=== PATIENT | female | born 1965 | race Caucasian/White ===

== ENCOUNTER 2018-02-03 05:07 | Inpatient (IN) | payer OTHER ==
[~2018-02-03] VITALS: Ht 154.9 cm; Wt 86.2 kg
[~2018-02-03 05:07] MED LIST: BACLOFEN10 M1 PO; FOLBIC RF TABL1 EACH PO; LEVOTHYROXINE175 MCG PO; MAGNESIUM500 M2 PO; OXCARBAZEPINE300 M1 PO; PERCOCET 5-3251 EACH PO; PROBIOTIC250 MG PO; VITAMIN D31000 UNI2 PO
--- NOTE | 2018-02-03 05:42 | ED GI/GU/ABDOMINAL COMPLAINT ---
History of Present Illness General Chief Complaint: General Adult Stated Complaint: VOMITING,WEAK,DIZZY POST/OP GALLBLADDER SURGERY Source: patient, family, old records Exam Limitations: no limitations Vital Signs & Intake/Output Vital Signs & Intake/Output Vital Signs Date Time Temp Pulse Resp B/P B/P Pulse O2 O2 Flow FiO2 Mean Ox Delivery Rate 02/03 1132 98.2 65 18 130/78 95 Room Air 02/03 0521 94 Room Air 02/03 0519 98.4 97 18 142/88 94 Room Air Allergies Coded Allergies: No Known Allergies (02/03/18) Reconcile Medications B12/Levomefolate Calcium/B-6 (Folbic Rf Tablet) 2 MG-1.13 MG-25 MG TABLET 2, 500 MG PO DAILY SUPPLEMENT (Reported) Baclofen 10 MG TABLET 1 TAB PO TID PRN MS (Reported) Cholecalciferol (Vitamin D3) 1,000 UNIT TABLET 5,000 UNITS PO DAILY SUPPLEMENT (Reported) Levothyroxine Sodium 175 MCG TABLET HYPOTHYROID (Reported) TAKE 1 PILL TUESDAY-TUESDAY 1/2 PILL TUESDAY- TUESDAY Magnesium Oxide (Magnesium) 500 MG CAPSULE 1 CAP PO DAILY SUPPLEMENT ( Reported) Morphine Sulfate 15 MG TABLET 1 TAB PO Q6P PRN severe pain Ondansetron (Zofran Odt) 4 MG TAB.RAPDIS 1 TAB SL Q6 PRN nausea vomiting Oxcarbazepine 300 MG TABLET 2 TAB PO TID MS (Reported) Oxycodone HCl/Acetaminophen (Percocet 5-325 MG Tablet) 5 MG-325 MG TABLET 1-2 TAB PO Q4-6 PRN PRN pain control tylenol alternatively. do not combine with percocet.. Saccharomyces Boulardii (Probiotic) 250 MG CAPSULE 1 TAB PO DAILY SUPPLEMENT (Reported) Triage Note: TRIAGE: PATIENT TO ER FROM HOME S/P CHOLECYSTECTOMY ON TUESDAY, REPORTS VOMITTING "ALOT" X 1 DAY AND SEVERE PAIN D/T "CAN'T KEEP THE PAIN MED THEY GAVE ME DOWN. ALSO REPORTING +CHILLS/ WEAKNESS, UNKNOWN IF ANY FEVERS, DENIES DRAINAGE FROM SURGICAL SITE. Triage Nurses Notes Reviewed? yes LMP (ages 10-50): post menopausal ? n Is pt currently ? No Onset: Evening Duration: hour(s):, constant, continues in ED Timing: recent history Quality/Severity: aching, moderate, severe, vomiting Location: generalized abdomen Radiation: no radiation Activities at Onset: eating Prior Abdominal Problems: s/p lap ccy Past Sexual History: Unobtainable at this time Modifying Factors: Worsens With: eating, palpation. Associated Symptoms: abdominal pain, loss of appetite, nausea/vomiting HPI: 2 days prior to admission patient had laparoscopic cholecystectomy. 10 hours prior to admission after eating dinner patient complains of nausea vomiting lower abdominal pain described as achy constant nonradiating moderate to severe. She denies fever chills chest pain cough shortness of breath headache dysuria rash bleeding. (Ras Mei MD) Past History Travel History Traveled to [place] past 21 day No Medical History Any Pertinent Medical History? 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 No (Ras Mei MD) Review of Systems Review of Systems Constitutional: Reports: no symptoms. EENTM: Reports: no symptoms. Respiratory: Reports: no symptoms. Cardiovascular: Reports: no symptoms. GI: Reports: see HPI, abdominal pain, nausea, vomiting. Genitourinary: Reports: no symptoms. Musculoskeletal: Reports: no symptoms. Skin: Reports: no symptoms. Neurological/Psychological: Reports: no symptoms. Hematologic/Endocrine: Reports: no symptoms. Immunologic/Allergic: Reports: no symptoms. All Other Systems: Reviewed and Negative (Ras Mei MD) Physical Exam Physical Exam General Appearance: well developed/nourished, alert, awake, anxious, moderate distress, obese Head: atraumatic, normal appearance Eyes: Bilateral: normal appearance, PERRL, EOMI, normal inspection. Ears, Nose, Throat, Mouth: hearing grossly normal, moist mucous membrane Neck: normal inspection, supple, full range of motion, normal alignment Respiratory: normal breath sounds, chest non-tender, no respiratory distress, quiet respiration, lungs clear Cardiovascular: regular rate/rhythm, normal peripheral pulses, norml femoral pulses equa Peripheral Pulses: 4+ carotid (R) Gastrointestinal: normal bowel sounds, soft, non-tender, no organomegaly Back: normal inspection, normal range of motion, no vertebral tenderness Extremities: normal range of motion, no ligament instability Neurologic/Psych: no motor/sensory deficits, awake, alert, oriented x 3, normal gait, normal mood/affect, 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 No Sepsis Present: No Sepsis Focused Exam Completed? No (Sigifredo LYNNE,Ras) Progress Differential Diagnosis: diverticulitis, gastritis, pancreatitis, SBO Plan of Care: Orders Procedure Date/time Status Nothing by Mouth 02/03 D Active Misc Message 02/03 113 Active ED Holding Orders 02/03 113 Active Admit to inpatient 02/03 113 Active Vital Signs 02/03 113 Active Code Status 02/03 113 Active PROTHROMBIN TIME 02/03 0531 Complete LACTIC ACID 02/03 0531 Complete LIPASE 02/03 05 Complete COMPREHENSIVE METABOLIC PANEL 02/03 05 Complete CBC WITHOUT DIFFERENTIAL 02/04 528 Complete Current Medications Sig/Josette Start time Last Medication Dose Stop Time Status Admin Morphine Sulfate 4 MG ONCE ONE 02/03 1145 AC (MORPHINE SULFATE) 02/03 1146 Ondansetron HCl 4 MG ONCE ONE 02/03 1145 AC (Zofran) 02/03 1146 Laboratory Tests 02/03/18 0831: Lactic Acid Cancelled 02/03/18 0541: Lactic Acid 1.1 02/03/18 0541: Anion Gap 12, Estimated GFR > 60, BUN/Creatinine Ratio 10.0, Glucose 106 H, Calcium 9.6, Total Bilirubin 3.2 H, AST 413 H, ALT 646 H, Alkaline Phosphatase 299 H, Total Protein 6.9, Albumin 4.1, Globulin 2.8, Albumin/ Globulin Ratio 1.5, Lipase > 03635 H, PT 12.3, INR 1.13, CBC w Diff MAN DIFF ORDERED, RBC 4.54, MCV 86.0, MCH 28.0, MCHC 32.6 L, RDW 15.0 H, MPV 8.6, Gran % 81.2 H, Lymphocytes % 10.9 L, Monocytes % 6.6, Eosinophils % 1.0, Basophils % 0.3, Absolute Granulocytes 4.4, Segmented Neutrophils 82 H, Absolute Lymphocytes 0.6 L, Lymphocytes 16 L, Monocytes 2, Absolute Monocytes 0.4, Absolute Eosinophils 0.1, Absolute Basophils 0, Platelet Estimate ADEQUATE, Hypochromic-Microcytic 1+, Poikilocytosis 1+, Ovalocytes 1+, Fld Total RBCs Counted 100 Initial ED EKG: none Hand-Off Endorsed To: Aiden Yuan MD Endorsed Time: 708 Pending: labs (chemistry) (Ras Mei MD) Comments: 02/03/2018 7:34:45 AM patient 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 02/03/2018 9:07:41 AM patient's CAT scan discussed with the radiologist who noted that there was a nonabsorbable sponge or perhaps Surgicel in the patient's abdomen. With review of the operative report Surgicel was used along with electrocautery to control bleeding. Otherwise there are expected postoperative changes. 02/03/2018 9:56:42 AM patient's case discussed with Dr. Goldsmith, covering for Dr. Hsieh. I have reviewed the CAT scan reports and elevations in transaminases. He recommends GI consultation for ERCP due to a likely retained gallstone. 02/03/2018 10:31:15 AM I have updated when the on test results. She states she is feeling only occasional waves of nausea. Awaiting call back from GI. 02/03/2018 11:05:17 AM patient's case discussed with Dr. Kilgore who will investigate the possibility of ERCP and call back with confirmation. (Lissy LYNNE,Aiden Jean Baptiste) Departure Departure Disposition: HOME OR SELF CARE Condition: Stable Clinical Impression Primary Impression: Postoperative abdominal pain Secondary Impressions: Adverse drug reaction, Nausea and vomiting in adult patient Referrals: Bunny Estes MD (PCP/Family) Saleem Grande DO Departure Forms: Customer Survey General Discharge Information Prescriptions: Current Visit Scripts Ondansetron (Zofran Odt) 1 TAB SL Q6 PRN nausea vomiting #10 TAB Morphine Sulfate 1 TAB PO Q6P PRN severe pain #15 TAB (Ras Mei MD) Admission Note Spoke With: Jamshid Cherry MD Documentation of Exam: Documentation of any treatments & extenuating circumstances including Concerns Regarding Discharge (functional status, medication knowledge or non-compliance, living conditions, etc.) that warrant an admission rather than observation: Patient presents with vomiting and abdominal pain and a severely elevated lipase along with elevations in transaminases. Patient is postop day #2 status post lap cholecystectomy. She very likely has a common bile duct stone resulting in pancreatitis and transaminitis. She is a high risk of cholangitis overwhelming infection, pancreatitis, third spacing, hypotension and . I feel the patient is a poor candidate for outpatient management and cannot safely be treated outside the hospital. She now requires hospitalization for close clinical monitoring of vital signs, particularly for onset of fever. ERCP should be performed to rule out a common bile duct stone or other biliary obstruction. Surgical consultation should be obtained given the patient's postop status. Patient's lipase and transaminases should be monitored for improvement after ERCP. Diet should be advanced as tolerated. I feel this patient will require a multiple day hospitalization. (Lissy LYNNE,Aiden Jean Baptiste) Critical Care Note Critical Care Note Critical Care Time: 30-74 min (Lissy LYNNE,Aiden Jean Baptiste)
[2018-02-03 05:53] LABS: ABSOLUTE BASOPHIL COUNT 0 /CUMM (0.0-0.2); ABSOLUTE EOSINOPHIL COUNT 0.1 /CUMM (0.0-0.7); ABSOLUTE GRANULOCYTE CT 4.4 /CUMM (1.4-6.5); ABSOLUTE LYMPH COUNT 0.6 /CUMM (1.2-3.4); ABSOLUTE MONOCYTE COUNT 0.4 /CUMM (0.10-0.60); BASOPHIL % 0.3 % (0.0-2.0); GRANULOCYTE % 81.2 % (42.2-75.2); MEAN CORPUSCULAR HGB CONC 32.6 G/DL (33.0-37.0); MEAN PLATELET VOLUME 8.6 FL (7.4-10.4); PLATELET COUNT 207 /CUMM (130-400); RED BLOOD CELL CT 4.54 /CUMM (4.20-5.40)
[2018-02-03 05:57] LABS: PT 12.3 SEC (9.4-12.5)
[2018-02-03 05:59] LABS: WHITE BLOOD CELL COUNT 5.4 /CUMM (4.8-10.8)
[2018-02-03] MEDS ORDERED: MORPHINE SULFAT15 M4 PO ×2 (07:01→07:03)
[2018-02-03] MEDS ORDERED: ZOFRAN ODT4 M1 SL (07:01)
--- NOTE | 2018-02-03 09:11 | CT SCAN REPORT ---
EXAMINATION: CT ABDOMEN AND PELVIS WITH CONTRAST CLINICAL INFORMATION: Pancreatitis. Phlegmon. Biliary obstruction. Elevated lipase. Liver function tests. Vomiting. COMPARISON: MRI 02/01/2018, ultrasound 01/31/2018, CT abdomen pelvis 01/31/2018. TECHNIQUE: Multidetector volumetric imaging was performed of the abdomen and pelvis following IV administration of 95 mL of Optiray 320 intravenous contrast. Sagittal and coronal reformatted images were obtained on the technologist's workstation. DLP: 615 mGy-cm FINDINGS: LUNG BASES: Bibasilar atelectasis, increased, right greater than left. LIVER, GALLBLADDER, AND BILIARY TREE: There is a hyperenhancing lesion in segment 7 of the liver, which is T2 bright on the MRI, consistent with a hemangioma. This is simple cyst along the anterior margin of the left lobe of the liver. New cholecystectomy clips are seen in the gallbladder fossa. There is an ovoid mixed density structure in the gallbladder fossa that measures approximately 3.6 x 2.3 cm, this has soft tissue density centrally, with a rim of fat and gas, and a thin peripheral capsule. A hemostatic sponge or sponge or Surgicel could have this appearance. There is a small amount of fluid along the right paracolic gutter, presumably postoperative as well. No focal fluid collection seen. No biliary ductal dilatation. PANCREAS: There is subtle fat stranding adjacent the head of the pancreas, although this appears to be centered in the gallbladder fossa. No peripancreatic fluid or fat stranding elsewhere. SPLEEN: Unremarkable. ADRENAL GLANDS: Unremarkable. KIDNEYS AND URETERS: The kidneys are normal in size, shape, and attenuation. No hydronephrosis, hydroureter, or calculi seen. No perinephric stranding. BLADDER: Unremarkable. GASTROINTESTINAL TRACT: There may be a small hiatal hernia. The stomach is collapsed. The small bowel is nondilated. There is colonic diverticulosis but there is no evidence of colitis or diverticulitis. The appendix is not seen. ABDOMINAL WALL: No significant hernia is appreciated. LYMPH NODES: No pathologically enlarged lymphadenopathy. VASCULAR: Unremarkable. PELVIC VISCERA: Small amount of pelvic free fluid is present. Normal CT appearance of the uterus and ovaries. OSSEOUS STRUCTURES: Unremarkable. IMPRESSION: There are postoperative changes consistent with recent cholecystectomy. There is an ovoid mixed density structure in the gallbladder fossa that has the appearance of a absorbable hemostatic sponge (Surgicel). This was confirmed in the Operative Note in discussion with Dr Yuan. No discrete fluid collection to suggest a bile leak or abscess at this time. Hepatobiliary scintigraphy could be considered if there is high clinical concern for a bile leak or biloma. No biliary ductal dilatation seen. There is a small amount of fat stranding adjacent the head of the pancreas. This appears to be centered around the jt hepatis and gallbladder fossa, suggesting it is postoperative rather than from acute pancreatitis. Discussed with Dr. Yuan.
--- NOTE | 2018-02-03 11:13 | Cons- Gastroenterology ---
General Information and HPI Consulting Request Date of Consult: 02/03/18 Requested By: YAMIL LYNNE,VALENTINA Reason for Consult: I was just texted by my office minutes ago of a request for a GI consult to assess probable gallstone pancreatitis, POD #2 lap CCKY Source of Information: patient, family (pt's , Alonso), old records Exam Limitations: no limitations History of Present Illness: 52 y/o female, PMHx significant for MS (dxd 2012 with neuropathy), BEATRICE, elev chol (nl TG), & hypoT4, recently admitted to [facility] 01/31/[address] 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 She stopped the Lyrica, but her sx persisted, along with some diarrhea then. The diarrhea susided, but was f/b n/v & increased bandlike, sharp upper abdominal pain, without radiation to the back. She had no prior abdominal surgery at that time, just a remote left breast lumpectomy many years prior. She previously had GERD, which improved after therapy for BEATRICE. She had been on Omeprazole previously. She denied any history of preceding chronc liver abnormalities or hx hepatitis. 03/24/16: Baseline screening colonoscopy to per Dr. Codi Roberts- normal. On admission on 01/31/18, she had elevated LFTs (TBil 1.7, alk phos 193, AST 711 , ALT 425), with normal amylase & lipase, GFR > 60, WBC 4,4, H/H 13.2/38.7, nl MCV, PLT 215 She was seen in inpatient GI consultation 01/31/18, by Dr. Codi Roberts. The patient was felt to have biliary colic, with gallstones & elevated LFTs ( hyperbilirubinemia/transaminitis), without any evident cholangitis or pancreatitis at that time. Although there were no dilated ducts on initial imaging studies, rule out choledocholithiasis. 01/31/18: EKG- NSR @ 81, nl axis, IRBBB, NSST. 01/31/18: US-COMPLETE ABDOMEN- Multiple gallstones. Though there is no significant gallbladder wall thickening or pericholecystic fluid, cholecystitis cannot be excluded in the proper clinical setting. If there is persistent clinical suspicion for acute cholecystitis, correlation with a nuclear medicine hepatobiliary scan may be helpful to assess for cystic duct obstruction. Left hepatic cyst 1.0 x 0.9 x 1.1 cm. Normal CBD 5 mm. 01/31/18: CT ABD & PELVIS W IV CONTRAST- Abnormal appearance of the gallbladder with wall thickening and pericholecystic fluid. No radiopaque gallstones are seen, but the appearance does raise suspicion for acute cholecystitis. ? Liver cysts. 02/01/18: MRI ABDOMEN WITHOUT CONTRAST (MRCP)- Cholelithiasis with multiple small gallstones which are present within the gallbladder neck. There is mild gallbladder wall thickening. Acute cholecystitis is not excluded. There is no evidence for choledocholithiasis. Normal IHD/EHD, with CBD 5 mm. Normal PD. Norml pancreas. There is a small cystic lesion in the liver and additional T2 hyperintense lesion which is incompletely characterized. Additional incidental findings as noted above. 02/01/18: Lap CCKY, per Dr. Grande, w/o IOC, as ducts were cleared on preop MRCP, with intraoperative findings of cholelithiasis & cholecystitis. (*Surgical pathology- pending). The patient was discharged to home 02/01/18, tolerating a diet, as her LFTs were starting to decline. The patient returned to the [facility] 02/03/18, arriving 5:07 a.m., complaining of nausea & vomiting (partially digested food & bile, w/o hematemesis), sharp mid-abdominal pain, weakness, & dizziness, POD # 2, post lap CCKY. There was no positional component. She denied any drainage from the surgical site. She denied any fevers, but may have had some chills. She ate a small piece of chicken, fruit & some bread at 5 p.m. on 02/02/18, followed 1 hour later by the above GI sx. She last drank some juliann angelique at 3 AM on 02/03/18, & had been NPO since. She denied any jaundice, light stools, or pruritus, but noted her urine was somewhat dark. She denied any EtOH or illicit drugs. She is an ex-20 pk yr cigarette smoker, D/C 2016. She had been constipated for the past week, but was on narcotic analgesics postoperatively. She denied any constipation or recurrent diarrhea. There was no rectal bleeding or melena. She denied any CP, SOB, sx UTI, or URI. The patient was not on any NSAIDs, sulfa medications, thiazides, or BCP. She denied any family history of GBD, inherited liver disease, pancreatitis, IBD, PUD, additional GI disease, or GI CA. Upon arrival to the ER, BP 142/88, P 97, R 18, T 98.4, O2 sat RA 94%. She was given IV NS, MS, Zofran, & Unasyn 3g IVPB. She was found to have elevated LFTs & newly elevated lipase. Surgery (Dr. Goldsmith, covering for Dr. Grande), was contacted by the ER, who deferred to GI. 02/03/18: WBC 5.4 (82S/16L/2M), H/H 12.7/39.0, MCV 86, RDW 15, PLT 207, PT 12.3, INR 1.13, glucose 106, BUN/Cr 7/0.7, GFR > 60, Na 143, K 3.8, HCO3 28, AG 12, lactate 1.1, *lipase > 10K, Ca 9.6, albumin 4.1, globulin 2.8, TBil 3.2 (without fracs), alk phos 299, AST 413, ALT 646, *TG- 74. 02/03/18: CT ABD & PELVIS W IV CONTRAST- There are postoperative changes consistent with recent cholecystectomy. There is an ovoid mixed density structure in the gallbladder fossa that has the appearance of a absorbable hemostatic sponge (Surgicel). This was confirmed in the Operative Note in discussion with Dr Yuan. No discrete fluid collection to suggest a bile leak or abscess at this time. Hepatobiliary scintigraphy could be considered if there is high clinical concern for a bile leak or biloma. No biliary ductal dilatation seen. There is a small amount of fat stranding adjacent the head of the pancreas. This appears to be centered around the jt hepatis and gallbladder fossa, suggesting it is postoperative rather than from acute pancreatitis. Discussed with Dr. Yuan. DICTATED BY: Gagan Stubbs MD DATE/TIME DICTATED:02/03/18839 Allergies/Medications Allergies: Coded Allergies: No Known Allergies (02/03/18) Home Med List: B12/Levomefolate Calcium/B-6 (Folbic Rf Tablet) 2 MG-1.13 MG-25 MG TABLET 2, 500 MG PO DAILY SUPPLEMENT (Reported) Baclofen 10 MG TABLET 1 TAB PO TID PRN MS (Reported) Cholecalciferol (Vitamin D3) 1,000 UNIT TABLET 5,000 UNITS PO DAILY SUPPLEMENT (Reported) Lactobacillus Acidophilus (Probiotic) 10 BILLION CELL CAPSULE 1 CAP PO TID GI (Reported) Levothyroxine Sodium 88 MCG TABLET 1 TAB PO SAT/SUN HYPOTHYROIDISM (Reported) Levothyroxine Sodium 175 MCG TABLET HYPOTHYROID (Reported) TAKE 1 PILL TUESDAY-TUESDAY 1/2 PILL TUESDAY- TUESDAY Magnesium Oxide (Magnesium) 500 MG CAPSULE 1 CAP PO DAILY SUPPLEMENT ( Reported) Oxcarbazepine (Trileptal) 300 MG TABLET 2 TAB PO TID MS (Reported) Saccharomyces Boulardii (Probiotic) 250 MG CAPSULE 1 TAB PO DAILY SUPPLEMENT (Reported) Current Medications: Current Medications Sig/Josette Start time Last Medication Dose Route Stop Time Status Admin Ampicillin Sodium/ 0 .STK-MED ONE 02/03 0747 DC Sulbactam Sodium .ROUTE Ampicillin Sodium/ 3,000 MG ONCE ONE 02/03 0745 DC 02/03 Sulbactam Sodium IV 02/03 0814 0752 Sodium Chloride 100 ML Baclofen 10 MG TIDPRN PRN 02/03 1230 AC PO Heparin Sodium 5,000 UNIT Q8 02/03 1400 AC (Porcine) SC Levothyroxine Sodium 0.088 MG SuSa@0700 02/04 0700 AC PO Levothyroxine Sodium 0.175 MG MoTuWeThFr@0700 02/03 1230 AC PO Morphine Sulfate 2 MG Q4P PRN 02/03 1230 AC IV Morphine Sulfate 4 MG ONCE ONE 02/03 1145 DC 02/03 IV 02/03 1146 1146 Morphine Sulfate 0 .STK-MED ONE 02/03 1141 DC .ROUTE Morphine Sulfate 0 .STK-MED ONE 02/03 0554 DC .ROUTE Morphine Sulfate 4 MG ONCE ONE 02/03 0530 DC 02/03 IV 02/03 0531 0551 Ondansetron HCl 4 MG Q6P PRN 02/03 1230 AC IV Ondansetron HCl 4 MG ONCE ONE 02/03 1145 DC 02/03 IV 02/03 1146 1146 Ondansetron HCl 0 .STK-MED ONE 02/03 1141 DC .ROUTE Ondansetron HCl 0 .STK-MED ONE 02/03 0555 DC .ROUTE Ondansetron HCl 4 MG ONCE ONE 02/03 0530 DC 02/03 IV 02/03 0531 0551 Phytonadione 5 MG ONCE ONE 02/03 1300 UNVr PO 02/03 1301 Sodium Chloride 1,000 ML Q10H 02/03 1215 AC 02/03 IV 1220 Sodium Chloride 1,000 ML BOLUS ONE 02/03 0530 DC 02/03 IV 02/03 0629 0551 Trimethobenzamide HCl 200 MG TIDPRN PRN 02/03 1215 AC IM Past History Travel History Traveled to [place] past 21 day No Medical History Blood Transfusion Hx: No Neurological: multiple sclerosis EENT: NONE Cardiovascular: NONE Respiratory: obstructive sleep apnea Gastrointestinal: NONE Hepatic: NONE (02/01/18: Lap CCKY), cholecystitis, cholelithiasis Renal: NONE Musculoskeletal: NONE Psychiatric: NONE Endocrine: hypothyroidism Blood Disorders: NONE Cancer(s): NONE INSTRUMENT FITTER/Reproductive: NONE Surgical History Surgical History: breast biopsy (left lumpectomy- benign), cholecystectomy (09/10: Lap CCKY) Family History Relations & Conditions If Any: MOTHER ([employer]). Age 81. FATHER, , Age 65; Cause: AIDS. AIDS Psychosocial History Where Do You Live? Home Who Do You Live With? spouse, mother & F-I-L. Services at Home: None Primary Language: Bengali Smoking Status: Former Smoker ETOH Use: denies use Illicit Drug Use: denies illicit drug use Living Will? no Power of [employer]/HCP? no Other Social History: . No children. Ex-20 pk yr cigarette smoker, D/c 2016. No EtOH or illicit drugs. Lives with , mother & MAULIK. Unemployed. Functional Ability ADLs Independent: dressing, eating, toileting, bathing. Ambulation: independent IADLs Independent: shopping, housework, finances, food prep, telephone, medication admin. Needs Assist: transportation. Employment History Employment: Unemployed Review of Systems Review of Systems: Full 14 point ROS otherwise noncontributory, and as above.\ Constitutional: Reports: chills. Denies: fever, unexplained weight loss. EENTM: Denies: icterus, epistaxis. Cardiovascular: Denies: chest pain, edema, syncope. Respiratory: Denies: cough, short of breath. GI: Reports: see HPI. Genitourinary: Denies: dysuria, hematuria. Musculoskeletal: Denies: muscle stiffness, neck pain. Skin: Denies: jaundice, lesions. Neurological/Psychological: Reports: neuropathy from MS. Denies: cognitive dysfunction, headache. Hematologic/Endocrine: Denies: bruising, bleeding. Review of Systems All Other Systems: Reviewed and Negative Exam & Diagnostic Data Vital Signs and I&O Vital Signs Date Time Temp Pulse Resp B/P B/P Pulse O2 O2 Flow FiO2 Mean Ox Delivery Rate 02/03 1132 98.2 65 18 130/78 95 Room Air 02/03 0521 94 Room Air 02/03 0519 98.4 97 18 142/88 94 Room Air Intake & Output 02/03 1600 02/03 0400 02/02 1600 02/02 0400 02/01 1600 02/01 0400 Intake Total Output Total Balance Patient 190 lb Weight Weight Reported by Patient Measurement Method Physical Exam: Well-developed, well-nourished, non-toxic appearing female, in no apparent distress. Sclera minimally icteric. Conjunctiva pink. Oropharynx clear. No oral thrush. No aphthous ulcers. Dry mucus membranes. There is no adenopathy, thyromegaly, or JVD. No peripheral stigmata of inflammatory bowel disease or chronic liver disease on exam. No spiders on the anterior chest wall. Breast & pelvic exams: API. No CVA tenderness. No spine tenderness. Lungs: clear to A&P. No wheezing, rales, or rhonchi. Heart exam: regular rate rhythm, S1 and S2, without any murmur. Abdominal exam: normal bowel sounds, soft belly, mild epigastric & periumbilical tenderness (medicated 15 minutes prior to my exam), without guarding or rebound. No mass. No organomegaly. Mutliple healing port sites, without pus. No fluid shift. No pulsatile mass. No epigastric bruit. Digital rectal exam: deferred at present. Extremities: without C, C, or E. No palpable cords. No rash. No acute arthropathy. No palmar erythema. No Dupuytren' s contractures. Distal pulses 2+ bilaterally. DTRs 2+ bilaterally. Alert and oriented x 3. Right handed. Motor 5/5 B/L. Gait not assessed. A detailed exam for peripheral neuropathy was deferred ( hx MS). No tremor. No asterixis. Results Pertinent Lab Results: Laboratory Tests 02/03 02/03 02/03 0831 0567 [id number] Chemistry Sodium (137 - 145 mmol/L) 143 Potassium (3.5 - 5.1 mmol/L) 3.8 Chloride (98 - 107 mmol/L) 103 Carbon Dioxide (22 - 30 mmol/L) 28 Anion Gap (5 - 16) 12 BUN (7 - 17 mg/dL) 7 Creatinine (0.5 - 1.0 mg/dL) 0.7 Estimated GFR (>60 ml/min) > 60 BUN/Creatinine Ratio (7 - 25 %) 10.0 Glucose (65 - 99 mg/dL) 106 H Hemoglobin A1c (4.2 - 5.8 %) Pending Lactic Acid (0.7 - 2.1 mmol/L) Cancelled 1.1 Calcium (8.4 - 10.2 mg/dL) 9.6 Total Bilirubin (0.2 - 1.3 mg/dL) 3.2 H AST (14 - 36 U/L) 413 H ALT (9 - 52 U/L) 646 H Alkaline Phosphatase (<127 U/L) 299 H Total Protein (6.3 - 8.2 g/dL) 6.9 Albumin (3.5 - 5.0 g/dL) 4.1 Globulin (1.9 - 4.2 gm/dL) 2.8 Albumin/Globulin Ratio (1.1 - 2.2 %) 1.5 Triglycerides (<150 mg/dL) 74 Lipase (23 - 300 U/L) > 67754 H Coagulation PT (9.4 - 12.5 SEC) 12.3 INR (0.90 - 1.19) 1.13 Hematology CBC w Diff MAN DIFF ORDERED WBC (4.8 - 10.8 /CUMM) 5.4 RBC (4.20 - 5.40 /CUMM) 4.54 Hgb (12.0 - 16.0 G/DL) 12.7 Hct (37 - 47 %) 39.0 MCV (81.0 - 99.0 FL) 86.0 MCH (27.0 - 31.0 PG) 28.0 MCHC (33.0 - 37.0 G/DL) 32.6 L RDW (11.5 - 14.5 %) 15.0 H Plt Count (130 - 400 /CUMM) 207 MPV (7.4 - 10.4 FL) 8.6 Gran % (42.2 - 75.2 %) 81.2 H Lymphocytes % (20.5 - 51.1 %) 10.9 L Monocytes % (1.7 - 9.3 %) 6.6 Eosinophils % (0 - 5 %) 1.0 Basophils % (0.0 - 2.0 %) 0.3 Absolute Granulocytes (1.4 - 6.5 /CUMM) 4.4 Segmented Neutrophils (42.2 - 75.2 %) 82 H Absolute Lymphocytes (1.2 - 3.4 /CUMM) 0.6 L Lymphocytes (20.5 - 51.1 %) 16 L Monocytes (1.7 - 9.3 %) 2 Absolute Monocytes (0.10 - 0.60 /CUMM) 0.4 Absolute Eosinophils (0.0 - 0.7 /CUMM) 0.1 Absolute Basophils (0.0 - 0.2 /CUMM) 0 Platelet Estimate (ADEQUATE) ADEQUATE Hypochromic-Microcytic 1+ Poikilocytosis 1+ Ovalocytes 1+ Other Body Source Fld Total RBCs Counted (%) 100 Imaging/Other Studies: 02/03/18: CT ABD & PELVIS W IV CONTRAST- There are postoperative changes consistent with recent cholecystectomy. There is an ovoid mixed density structure in the gallbladder fossa that has the appearance of a absorbable hemostatic sponge (Surgicel). This was confirmed in the Operative Note in discussion with Dr Yuan. No discrete fluid collection to suggest a bile leak or abscess at this time. Hepatobiliary scintigraphy could be considered if there is high clinical concern for a bile leak or biloma. No biliary ductal dilatation seen. There is a small amount of fat stranding adjacent the head of the pancreas. This appears to be centered around the jt hepatis and gallbladder fossa, suggesting it is postoperative rather than from acute pancreatitis. Discussed with Dr. Yuan. DICTATED BY: Gaagn Stubbs MD Assessment/Plan Assessment/Recommendations: 52 y/o female, PMHx significant for MS (dxd 2012 with neuropathy; on no specific anti-MS meds), BEATRICE, elev chol (nl TG), & hypoT4, recently admitted to [facility] 01/31/[address] 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 She stopped the Lyrica, but her sx persisted, along with some diarrhea then. The diarrhea susided, but was f/b n/v & increased bandlike, sharp upper abdominal pain, without radiation to the back. She had no prior abdominal surgery at that time, just a remote left breast lumpectomy many years prior. She previously had GERD, which improved after therapy for BEATRICE. She had been on Omeprazole previously. She denied any history of preceding chronc liver abnormalities or hx hepatitis. 03/24/16: Baseline screening colonoscopy to per Dr. Codi Roberts- normal. On admission on 01/31/18, she had elevated LFTs (TBil 1.7, alk phos 193, AST 711 , ALT 425), with normal amylase & lipase, GFR > 60, WBC 4,4, H/H 13.2/38.7, nl MCV, PLT 215 She was seen in inpatient GI consultation 01/31/18, by Dr. Codi Roberts. The patient was felt to have biliary colic, with gallstones & elevated LFTs ( hyperbilirubinemia/transaminitis), without any evident cholangitis or pancreatitis at that time. Although there were no dilated ducts on initial imaging studies, rule out choledocholithiasis. 01/31/18: EKG- NSR @ 81, nl axis, IRBBB, NSST. 01/31/18: US-COMPLETE ABDOMEN- Multiple gallstones. Though there is no significant gallbladder wall thickening or pericholecystic fluid, cholecystitis cannot be excluded in the proper clinical setting. If there is persistent clinical suspicion for acute cholecystitis, correlation with a nuclear medicine hepatobiliary scan may be helpful to assess for cystic duct obstruction. Left hepatic cyst 1.0 x 0.9 x 1.1 cm. Normal CBD 5 mm. 01/31/18: CT ABD & PELVIS W IV CONTRAST- Abnormal appearance of the gallbladder with wall thickening and pericholecystic fluid. No radiopaque gallstones are seen, but the appearance does raise suspicion for acute cholecystitis. ? Liver cysts. 02/01/18: MRI ABDOMEN WITHOUT CONTRAST (MRCP)- Cholelithiasis with multiple small gallstones which are present within the gallbladder neck. There is mild gallbladder wall thickening. Acute cholecystitis is not excluded. There is no evidence for choledocholithiasis. Normal IHD/EHD, with CBD 5 mm. Normal PD. Norml pancreas. There is a small cystic lesion in the liver and additional T2 hyperintense lesion which is incompletely characterized. Additional incidental findings as noted above. 02/01/18: Lap CCKY, per Dr. Grande, w/o IOC, as ducts were cleared on preop MRCP, with intraoperative findings of cholelithiasis & cholecystitis. (*Surgical pathology- pending). The patient was discharged to home 02/01/18, tolerating a diet, as her LFTs were starting to decline. The patient returned to the [facility] 02/03/18, arriving 5:07 a.m., complaining of nausea & vomiting (partially digested food & bile, w/o hematemesis), sharp mid-abdominal pain, weakness, & dizziness, POD # 2, post lap CCKY. There was no positional component. She denied any drainage from the surgical site. She denied any fevers, but may have had some chills. She ate a small piece of chicken, fruit & some bread at 5 p.m. on 02/02/18, followed 1 hour later by the above GI sx. She last drank some juliann angelique at 3 AM on 02/03/18, & had been NPO since. She denied any jaundice, light stools, or pruritus, but noted her urine was somewhat dark. She denied any EtOH or illicit drugs. She is an ex-20 pk yr cigarette smoker, D/C 2016. She had been constipated for the past week, but was on narcotic analgesics postoperatively. She denied any constipation or recurrent diarrhea. There was no rectal bleeding or melena. She denied any CP, SOB, sx UTI, or URI. The patient was not on any NSAIDs, sulfa medications, thiazides, or BCP. She denied any family history of GBD, inherited liver disease , pancreatitis, IBD, PUD, additional GI disease, or GI CA. Upon arrival to the ER, BP 142/88, P 97, R 18, T 98.4, O2 sat RA 94%. She was given IV NS, MS, Zofran, & Unasyn 3g IVPB. She was found to have elevated LFTs & newly elevated lipase. Surgery (Dr. Goldsmith, covering for Dr. Grande), was contacted by the ER, who deferred to GI. 02/03/18: WBC 5.4 (82S/16L/2M), H/H 12.7/39.0, MCV 86, RDW 15, PLT 207, PT 12.3, INR 1.13, glucose 106, BUN/Cr 7/0.7, GFR > 60, Na 143, K 3.8, HCO3 28, AG 12, lactate 1.1, *lipase > 10K, Ca 9.6, albumin 4.1, globulin 2.8, TBil 3.2 (without fracs), alk phos 299, AST 413, ALT 646, *TG- 74. 02/03/18: CT ABD & PELVIS W IV CONTRAST- There are postoperative changes consistent with recent cholecystectomy. There is an ovoid mixed density structure in the gallbladder fossa that has the appearance of a absorbable hemostatic sponge (Surgicel). This was confirmed in the Operative Note in discussion with Dr Yuan. No discrete fluid collection to suggest a bile leak or abscess at this time. Hepatobiliary scintigraphy could be considered if there is high clinical concern for a bile leak or biloma. No biliary ductal dilatation seen. There is a small amount of fat stranding adjacent the head of the pancreas. This appears to be centered around the jt hepatis and gallbladder fossa, suggesting it is postoperative rather than from acute pancreatitis. Discussed with Dr. Yuan. DICTATED BY: Gagan Stubbs MD DATE/TIME DICTATED:02/03/18839 *As of 02/03/18, most likely with gallstone pancreatitis with probable choledocholithiasis and/or sludge in CBD, POD #2 post 02/01/18: lap CCKY, despite lack of dilated ducts on imaging studies, including clean CBD on preop 02/01/18: MRCP. The patient was not hypotensive or tachycardic, and was mentating well. She had no signs of cholangitis. She had already been given Unasyn 3g IVPB by the ER. She was NPO. Clinically doubt postop bile leak or biloma. She had 1 Grave sign by [place] criteria on admission (elevated AST), but no LDH was sent. She had 0 Grave signs by [facility] criteria on admission, but no CXR was done to rule out pleural effusions, although none were seen at the lung bases on admission 02/03/18: CT AP with IV contrast. There was some fat stranding at the head of the pancreas, but certainly nothing suspicious for necrosis. *SUGGEST: NPO. IVF (IV Ringer's lactate at 200 cc/hr). Strict I/O's. Watch for hemoconcentration (i.e.- rising BUN or H/H, despite IVF, which would be a poor prognostic sign). Narcotic analgesics as needed. Zofran as needed.*Check CRP within 48 hrs. *Add LDH, & fractionated bilirubin to admission labs. The pt has been given Unasyn, but I do not feel antibiotics are mandatory at present. Call GI PATRIA if the pt shows signs or sx of cholangitis, such as altered mental status, hypotension, tachycardia, etc. Otherwise, for ERCP with probable ES per Dr. Codi Roberts later today. Empiric Vitamin K 10 mg sc x 1 preop. DVT prophylaxs with mechanical ALPS. *Await 02/01/18: GB surgical pathology. The above was discussed with the patient, the patient's , Alonso, in the ER at the time of GI consultation, and with the medical house staff. Further GI recommendations to follow, depending on clinical course. The patient will follow up with her usual GI MD, Dr. Codi Roberts, after D/C. Problem List: 1. Gallstone pancreatitis 2. Postoperative abdominal pain 3. Nausea and vomiting in adult patient Copies To: Clementine LYNNE,Tonya Tsai; Meera LYNNE,Bunny AMandy; Ellyn Grande DO, MD,Valentina; Jaquelin LYNNE,Patrick Bourne; Rupal LYNNE,Sachin; Alejandra LYNNE,Herrera Ziegler. Consult Acknowledgment - Thank you for your consult request.
--- NOTE | 2018-02-03 11:55 | History & Physical ---
Raquel Edmonds 02/03/18 1153: General Information and HPI MD Statement: I have seen and personally examined RANULFO GLOVER and documented this H&P. The patient is a 52 year old F who presented with a patient stated chief complaint of [nasuea, vomiting]. Source of Information: patient, old records Exam Limitations: no limitations History of Present Illness: 52-year-old female with a past medical history of MS, BEATRICE, hypothyroidism who is post operative day #2 of laparoscopic cholecystectomy on February 01, [address] Hsieh presens to the ED with c/o of abdominal pain, nausea, and occassional chills that started late yesterday afternoon. Patient had initially presented to the ED on January 31, 2018 with similar complains of abdominal pain, nausea, vomiting and diarrhea, which she attributed to Lyrica and had D/C (prescribed to her by Dr. Hammer for MS). Her symptoms , however had persisted prompting her to come to the ER at that time. Going through records revela that at that time she had presented with biliary colic , gallstones, and hyperbilirubinemia/transaminitis, with no evidence of cholangitis or pancreatitis. She was evaluated by GI and Gen Surgery at that time. MRCP was negative, and bilirubin/liver enzymes were improving, and patient subsequently underwent a lap alexsandra on February 01, 2018. She states that post- procedure she did fairly well and was toelrtaing food well until late last evening, awhen she started to experience excruciating, non-radiating upper abdominal pain. She took a percocet taht was prescribed to her on discharge that helped alleviate a little, but then started to come back again. She took a second percocet, and subsequently started to feel more nauseated, and has been throwing up non-bloody, bilous vomitus. Only took gingerale at 3:00am today, buit unable to keep it down. She denies any fevers, rash, icterus, any discharge from the surgical site. She denies any change in the pain upon chnaging posture. Her ROS is otherwise unremarkable. Allergies/Medications Allergies: Coded Allergies: No Known Allergies (02/03/18) Home Med list B12/Levomefolate Calcium/B-6 (Folbic Rf Tablet) 2 MG-1.13 MG-25 MG TABLET 2, 500 MG PO DAILY SUPPLEMENT (Reported) Baclofen 10 MG TABLET 1 TAB PO TID PRN MS (Reported) Cholecalciferol (Vitamin D3) 1,000 UNIT TABLET 5,000 UNITS PO DAILY SUPPLEMENT (Reported) Lactobacillus Acidophilus (Probiotic) 10 BILLION CELL CAPSULE 1 CAP PO TID GI (Reported) Levothyroxine Sodium 88 MCG TABLET 1 TAB PO SAT/SUN HYPOTHYROIDISM (Reported) Levothyroxine Sodium 175 MCG TABLET HYPOTHYROID (Reported) TAKE 1 PILL TUESDAY-TUESDAY 1/2 PILL TUESDAY- TUESDAY Magnesium Oxide (Magnesium) 500 MG CAPSULE 1 CAP PO DAILY SUPPLEMENT ( Reported) Oxcarbazepine (Trileptal) 300 MG TABLET 2 TAB PO TID MS (Reported) Saccharomyces Boulardii (Probiotic) 250 MG CAPSULE 1 TAB PO DAILY SUPPLEMENT (Reported) Past History Travel History Traveled to Winter past 21 day No Medical History Neurological: multiple sclerosis EENT: NONE Cardiovascular: NONE Respiratory: NONE Gastrointestinal: NONE Hepatic: NONE Renal: NONE Musculoskeletal: NONE Psychiatric: NONE Endocrine: hypothyroidism Blood Disorders: NONE Cancer(s): NONE PAY PER CLICK STRATEGIST/Reproductive: NONE Surgical History Surgical History: cholecystectomy Past Family/Social History Family History Relations & Conditions if any MOTHER FATHER AIDS Psychosocial History Where do you live? Home Who Do You Live With? spouse Services at Home: None Primary Language: Norwegian Smoking Status: Former Smoker (quit about a year ago) ETOH Use: denies use Illicit Drug Use: denies illicit drug use Functional Ability ADLs Independent: dressing, eating, toileting, bathing. Ambulation: independent IADLs Independent: shopping, housework, finances, food prep, telephone, transportation , medication admin. Sexual History Past Sexual History Unobtainable at this time Employment History Employment Unemployed Review of Systems Review of Systems Constitutional: Reports: chills. Denies: diaphoresis, fever, weakness. EENTM: Denies: visual changes. Cardiovascular: Denies: chest pain, orthopena, palpitations, peripheral edema, syncope. Respiratory: Denies: cough, orthopnea, short of breath, wheezing. GI: Reports: abdominal pain, constipation, nausea, vomiting. Denies: diarrhea. Genitourinary: Denies: dysuria, frequency, hematuria, pain. Musculoskeletal: Reports: no symptoms. Neurological/Psychological: Denies: headache, numbness, tingling, tremors. Exam & Diagnostic Data Last 24 Hrs of Vital Signs/I&O Vital Signs Date Time Temp Pulse Resp B/P B/P Pulse O2 O2 Flow FiO2 Mean Ox Delivery Rate 02/03 1132 98.2 65 18 130/78 95 Room Air 02/03 0521 94 Room Air 02/03 0519 98.4 97 18 142/88 94 Room Air Intake & Output 02/03 1600 02/03 0800 02/03 0000 Intake Total Output Total Balance Patient 190 lb Weight Weight Reported by Patient Measurement Method Physical Exam General Appearance Alert, Oriented X3, Cooperative, No Acute Distress Skin Temp/Moisture Exam: Warm/Dry HEENT Atraumatic, PERRLA, EOMI, dry mucous membranes, slightly icteric Neck Supple, No JVD, No thryomegaly, No LAD Cardiovascular Regular Rate, Normal S1, Normal S2, No Murmurs Lungs Clear to Auscultation, Normal Air Movement Abdomen Normal Bowel Sounds, Soft, has multiple surgical wound dressings at the lap chol port sites; surrounding erythema, no discharge onoted, mildly tender to palpation i n RUQ, and periumbilical area. Neurological Normal Speech, Strength at 5/5 X4 Ext, Normal Tone, Sensation Intact, Cranial Nerves 3-12 NL, Reflexes 2+ Extremities No Edema Vascular Normal Pulses, Pulses Symmetrical Last 24 Hrs of Labs/Cain: Laboratory Tests 02/03/18 0831: Lactic Acid Cancelled 02/03/18 0541: Lactic Acid 1.1 02/03/18 0541: Anion Gap 12, Estimated GFR > 60, BUN/Creatinine Ratio 10.0, Glucose 106 H, Calcium 9.6, Total Bilirubin 3.2 H, AST 413 H, ALT 646 H, Alkaline Phosphatase 299 H, Total Protein 6.9, Albumin 4.1, Globulin 2.8, Albumin/ Globulin Ratio 1.5, Lipase > 92476 H, PT 12.3, INR 1.13, CBC w Diff MAN DIFF ORDERED, RBC 4.54, MCV 86.0, MCH 28.0, MCHC 32.6 L, RDW 15.0 H, MPV 8.6, Gran % 81.2 H, Lymphocytes % 10.9 L, Monocytes % 6.6, Eosinophils % 1.0, Basophils % 0.3, Absolute Granulocytes 4.4, Segmented Neutrophils 82 H, Absolute Lymphocytes 0.6 L, Lymphocytes 16 L, Monocytes 2, Absolute Monocytes 0.4, Absolute Eosinophils 0.1, Absolute Basophils 0, Platelet Estimate ADEQUATE, Hypochromic-Microcytic 1+, Poikilocytosis 1+, Ovalocytes 1+, Fld Total RBCs Counted 100 Diagnostic Data Other Results SERVICE DATE: 02/03/18 EXAM TYPE: CAT - CT ABD & PELVIS W IV CONTRAST FINDINGS: LUNG BASES: Bibasilar atelectasis, increased, right greater than left. LIVER, GALLBLADDER, AND BILIARY TREE: There is a hyperenhancing lesion in segment 7 of the liver, which is T2 bright on the MRI, consistent with a hemangioma. This is simple cyst along the anterior margin of the left lobe of the liver. New cholecystectomy clips are seen in the gallbladder fossa. There is an ovoid mixed density structure in the gallbladder fossa that measures approximately 3.6 x 2.3 cm, this has soft tissue density centrally, with a rim of fat and gas, and a thin peripheral capsule. A hemostatic sponge or sponge or Surgicel could have this appearance. There is a small amount of fluid along the right paracolic gutter, presumably postoperative as well. No focal fluid collection seen. No biliary ductal dilatation. PANCREAS: There is subtle fat stranding adjacent the head of the pancreas, although this appears to be centered in the gallbladder fossa. No peripancreatic fluid or fat stranding elsewhere. SPLEEN: Unremarkable. ADRENAL GLANDS: Unremarkable. KIDNEYS AND URETERS: The kidneys are normal in size, shape, and attenuation. No hydronephrosis, hydroureter, or calculi seen. No perinephric stranding. BLADDER: Unremarkable. GASTROINTESTINAL TRACT: There may be a small hiatal hernia. The stomach is collapsed. The small bowel is nondilated. There is colonic diverticulosis but there is no evidence of colitis or diverticulitis. The appendix is not seen. ABDOMINAL WALL: No significant hernia is appreciated. LYMPH NODES: No pathologically enlarged lymphadenopathy. VASCULAR: Unremarkable. PELVIC VISCERA: Small amount of pelvic free fluid is present. Normal CT appearance of the uterus and ovaries. OSSEOUS STRUCTURES: Unremarkable. IMPRESSION: There are postoperative changes consistent with recent cholecystectomy. There is an ovoid mixed density structure in the gallbladder fossa that has the appearance of a absorbable hemostatic sponge (Surgicel). This was confirmed in the Operative Note in discussion with Dr Yuan. No discrete fluid collection to suggest a bile leak or abscess at this time. Hepatobiliary scintigraphy could be considered if there is high clinical concern for a bile leak or biloma. No biliary ductal dilatation seen. There is a small amount of fat stranding adjacent the head of the pancreas. This appears to be centered around the jt hepatis and gallbladder fossa, suggesting it is postoperative rather than from acute pancreatitis. Discussed with Dr. Yuan. Assessment/Plan Assessment: 52-year-old female with a past medical history of MS, BEATRICE, hypothyroidism, s/p POD #2 of lap alexsandra presents o the ER with c/o Vitals at the time of admission blood pressure 130/78, pulse 65, afebrile, respiratory rate of 18 saturating 95% on room air. Labs pertinent for normal white blood cell count 5400, H&H of 12.7/39.0, platelet count of 207,000. Serum chemistries pertinent for sodium of 143, potassium 3.8, bicarb of 28, BUN 7 with a creatinine of 0.77 glucose 106. LFTs pertinent for trending up since discharge on February 01, 2018 with a total bili of 3.2, AST/ALT 413/646, alk phos of 299 and serum lipase more than 10,000. CAT scan of the abdomen pelvis showed postoperative changes consistent with recent cholecystectomy, and opioid mixed density structure in the gallbladder fossa that has an appearance of an absorbable hemostatic sponge, no discrete fluid collection to suggest a bile leak or abscess at this time. No biliary ductal dilatation, small amount of fat stranding adjacent to the head of the pancreas which appears to be centered around the jt hepatis and gallbladder fossa suggesting. Rated rather than acute pancreatitis. In the ER patient received Unasyn 3000 mg IV 1, morphine sulfate 4 mg IV 2, Zofran 4 mg IV 2 and a bolus of normal saline. Assessment and plan Admit patient to general medicine #Pancreatitis vs choledocholithiasis 2/2 gallstone lodged in CBD? s/p lap alexsandra #2 Patient will benefit from ERCP Will make NPO and have GI on board [facility] will hydrae with NS @100mls/hr, and start on Zofran and Tigan PRN for nausea F/U GI recs. Trend LFTs and BEP Meanwhile will add TG, a nd calcium to ED labs. F/U GI recs #Hypothyroidism Patient is on 175mcg of Levothyroxine Tue through Tuesday and takes 1/2 tab on Sat and Sun #MS On oxycarbazepine 600MG TID Continue current medications, including Baclofen #DVT prophylaxis - Heparin 5000IU TID SC - Diet NPO pending ERCP - Code Status - Full Code As Ranked By This Provider Problem List: 1. Gallstone pancreatitis 2. Nausea and vomiting in adult patient Core Measures/Misc (07/10) Acute Coronary Syndrome ACS Diagnosis: No Congestive Heart Failure Congestive Heart Failure Diagnosis No Cerebrovascular Accident CVA/TIA Diagnosis: No VTE (View Protocol) VTE Risk Factors Age>40 No Mechanical VTE Prophylaxis d/t N/A MechProphylax Ordered No VTE Pharm Prophylaxis d/t NA PharmProphylax ordered Sepsis (View protocol) Sepsis Present: No Resident Review Statement Resident Statement: admitted by resident Felipe Oh MD 02/03/18 1512: Attending MD Review Statement Attending Statement Attending MD Statement: examined this patient, discuss w/resident/PA/COMPLIANCE NURSE, agreed w/resident/PA/COMPLIANCE NURSE, reviewed EMR data (avail), reviewed images, amended to note Attending Assessment/Plan: The patient is a 52 yo female with h/o MS, BEATRICE, and hypothyroidism who is s/p laparoscopic cholecystectomy on 02/01/18 who presented in the ED with c/o abdominal pain, nausea and vomiting. Was found to have pancreatitis with lipase >10,000. Seen by Dr. Mcdaniel in ED who recommended ERCP for presumed gallstone pancreatitis. The patient denied fever, chills, chest pain, palpitations. Physical Exam: VS: T 98.4, P 97, R 18, BP 142/88, PO 94% HEENT: eyes- PERRLA, EOMI fidencio- dry mucosa Neck: no JVD/bruits Chest: clear Cor: RRR nl S1, S2 w/o murm Abd: BS+, softly distended, + tenderness in epigastric and RUQ regions w/o rebound Ext: no edema Neuro: non-focal (gait not tested) Labs/Tests- as above Impression/Plan: #Abdominal Pain/Acute Pancreatitis- as above, presumed gallstone pancreatitis. Plan: Admit to medicine. IV fluids- LR as ordered. NPO, GI consult- ERCP planned (Dr. Roberts to do today). #Hypothyroid- clinically euthyroid on Levothyroxine. Plan: Continue Levothyroxine when able to take po. #Multiple Sclerosis- followed by Neurology. Plan: Continue oxcarbazepine.
[2018-02-03] MEDS ORDERED: LEVOTHYROXINE88 MCG PO (12:17)
[2018-02-03] MEDS ORDERED: PROBIOTIC1 EACH PO (12:18)
[2018-02-03] MEDS ORDERED: TRILEPTAL300 M1 PO (12:18)
--- NOTE | 2018-02-03 15:21 | Admission Certification ---
Admission Certification Certification Statement - As attending physician, I certify that at the time of - admission, based on clinical presentation, severity of - symptoms, need for further diagnostic testing and - therapeutic interventions, and risk of adverse outcomes - without in-hospital treatment, in my clinical assessment, - this patient requires an acute hospital stay for a minimum - of two nights or longer. I have also considered psychsocial - factors such as support system, advanced age, financial - issues, cognitive issues, and failed out-patient treatments, - past re-admission history, safety of patient, and lack of - compliance as applicable. Specific rationale supporting this admission is: The patient presents with acute abdominal pain c/w gallstone pancreatitis. She is s/p laparoscopic cholecystectomy 02/01. Needs admission for IV narcotics, fluids, trend lipase/LFT"s. Also needs GI consult and ERCP.
--- NOTE | 2018-02-03 15:52 | Proc Note ERCP ---
ERCP Procedure Procedure Date: 02/03/18 GI Procedure(s): ERCP with sphincterotomy/stone meter technician: Herrera Roberts M.D. ASA Classification: III Indications: Abdominal pain, vomiting, hyperbilirubinemia and pancreatitis status post cholecystectomy. Presentation highly suggestive of choledocholithiasis. Instrument: duodenoscope Meds Received: ELIZA/TIVA Patient's Tolerance: good Complications: none Procedure: The patient signed informed consent, and was intubated. She was turned into the prone position, and was further medicated. Pulse oximetry, blood pressure and cardiac monitoring were performed continuously throughout the procedure. The Olympus V duodenoscope was inserted into the mouth and advanced to the duodenum. Indomethacin 100 mg was administered per rectum. The stomach was not examined. The gastric outlet, duodenum and papilla were normal. The pancreatic duct was cannulated and partially opacified. Caliber and contour were normal. There were no evident filling defects or strictures. The bile duct was accessed with guidewire, cannulated, and opacified. The cholangiogram demonstrated normal caliber and contour of the common bile duct, common hepatic duct, and hepatic ducts. There was a single distal filling defect. There was no extravasation of contrast/leak. The cystic duct was not opacified. A large, bloodless sphincterotomy was performed. The stone was visualized in the area of the ampulla/distal CBD, and removed with suction. An occlusion cholangiogram was performed with an inflated 15 mm extraction balloon. There was no distal extravasation of contrast. There were no further filling defects. The duct was swept from bifurcation to duodenum, without delivery of stones or debris, and without resistance to passage. The patient was extubated in the procedure room, and brought to the recovery room in good condition. Impression: * Choledocholithiasis, treated with sphincterotomy and stone extraction. Recommendations: * Nothing by mouth until 8 PM, and then begin clear liquids if pain-free * Continue IV fluids * No need for antibiotics * Follow-up CBC and liver function test in the morning * Avoid anticoagulation for 72 hours CC: Meera LYNNE,Bunny Blum; Saleem Grande DO
[2018-02-03 16:34] VITALS: BP 130/80
--- NOTE | 2018-02-03 17:09 | RADIOLOGY REPORT ---
EXAMINATION: XR BILIARY AND PANCREATIC ERCP CLINICAL INFORMATION: ERCP. Gallstone pancreatitis. COMPARISON: CT of the abdomen and pelvis done on 02/20/2018. TECHNIQUE: Multiple spot radiographs were obtained at the time of the ERCP performed by Dr. Roberts. FINDINGS: Evidence of cannulation of both the common bile duct as well as pancreatic ducts are noted. Full procedural detail and findings will be described by Dr. Roberts, the performing physician. FLUOROSCOPY TIME: 1 minute 56 seconds. NUMBER OF IMAGES: 12 images. IMPRESSION: C-arm fluoroscopy assistance is provided at the time of ERCP. Please refer to Dr. Roberts's note for further full details.
[2018-02-03 22:02] VITALS: BP 124/80
[2018-02-04 06:50] VITALS: BP 126/78
[2018-02-04 08:29] LABS: ABSOLUTE BASOPHIL COUNT 0 /CUMM (0.0-0.2); ABSOLUTE EOSINOPHIL COUNT 0.1 /CUMM (0.0-0.7); ABSOLUTE GRANULOCYTE CT 2.5 /CUMM (1.4-6.5); ABSOLUTE MONOCYTE COUNT 0.3 /CUMM (0.10-0.60); MEAN PLATELET VOLUME 9.1 FL (7.4-10.4); PLATELET COUNT 137 /CUMM (130-400); WHITE BLOOD CELL COUNT 3.6 /CUMM (4.8-10.8)
[2018-02-04 08:45] LABS: ABSOLUTE LYMPH COUNT 0.8 /CUMM (1.2-3.4); BASOPHIL % 0.3 % (0.0-2.0); EOSINOPHIL % 2.5 % (0-5); GRANULOCYTE % 68.9 % (42.2-75.2); MEAN CORPUSCULAR HGB 28.9 PG (27.0-31.0); MEAN CORPUSCULAR HGB CONC 33.6 G/DL (33.0-37.0); MEAN CORPUSCULAR VOLUME 85.9 FL (81.0-99.0); RED BLOOD CELL CT 3.89 /CUMM (4.20-5.40)
[2018-02-04 08:51] LABS: HEMATOCRIT 33.4 % (37-47)
--- NOTE | 2018-02-04 08:59 | PN- Housestaff ---
See Addendum Subjective Follow-up For: chronic cholecystitis & cholelithiasis s/p lap choly Choledocholelithiasis s/p ERCP Subjective: No acute events overnight. Patient requesting to be discharged. Review of Systems Constitutional: Reports: see HPI. Objective Last 24 Hrs of Vital Signs/I&O Vital Signs Date Time Temp Pulse Resp B/P B/P Pulse O2 O2 Flow FiO2 Mean Ox Delivery Rate 02/04 1324 98.7 57 18 132/78 97 Room Air 02/04 0650 97.7 73 20 126/78 95 02/03 2202 97.9 70 17 124/80 95 Room Air Intake & Output 02/04 1600 02/04 0800 02/04 0000 Intake Total 2330 1720 1050 Output Total 700 600 Balance 1630 1120 1050 Intake, IV 1610 1600 600 Intake, Oral 720 120 450 Output, Urine 700 600 Patient 190 lb Weight Weight Reported by Patient Measurement Method Physical Exam General Appearance: Alert, Oriented X3, Cooperative, No Acute Distress Cardiovascular: Regular Rate, Normal S1, Normal S2 Lungs: Clear to Auscultation, Normal Air Movement Abdomen: Normal Bowel Sounds, Soft, No Tenderness, RUQ and umbilucus surgical scar Extremities: 2+ radial pulses Assessment/Plan Assessment: 52-year-old female with a past medical history of MS, BEATRICE, hypothyroidism, s/p POD #2 of lap alexsandra presents o the ER with c/o abd pain #Choledocholelithiasis s/p ERCP Patient discharged today as she was able to tolerated a low fat full liquid diet Advised to f/u with Dr. Roberts of GI #Hypothyroidism Patient is on 175mcg of Levothyroxine Tue through Tuesday and takes 1/2 tab on Sat and Sun #MS On oxycarbazepine 600MG TID Continue current medications, including Baclofen #DVT prophylaxis - Heparin 5000IU TID SC - Diet NPO pending ERCP - Code Status - Full Code Problem List: 1. Choledocholithiasis Pain Ratin Pain Location: none Pain Goal: Pain 4 or less Pain Plan: pathway Tomorrow's Labs & Rationales: none
[2018-02-04 13:24] VITALS: BP 132/78
--- NOTE | 2018-02-04 14:32 | PN- Gastroenterology ---
Assessment/Plan GI Assessment/Recommendations: 52 y/o female, PMHx significant for MS (dxd 2013 with neuropathy; on no specific anti-MS meds), BEATRICE, elev chol (nl TG), & hypoT4, recently admitted to [facility] 01/31/[address] 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 She stopped the Lyrica, but her sx persisted, along with some diarrhea then. The diarrhea susided, but was f/b n/v & increased bandlike, sharp upper abdominal pain, without radiation to the back. She had no prior abdominal surgery at that time, just a remote left breast lumpectomy many years prior. She previously had GERD, which improved after therapy for BEATRICE. She had been on Omeprazole previously. She denied any history of preceding chronc liver abnormalities or hx hepatitis. 03/24/16: Baseline screening colonoscopy to per Dr. Codi Roberts- normal. On admission on 01/31/18, she had elevated LFTs (TBil 1.7, alk phos 193, AST 711 , ALT 425), with normal amylase & lipase, GFR > 60, WBC 4,4, H/H 13.2/38.7, nl MCV, PLT 215 She was seen in inpatient GI consultation 01/31/18, by Dr. Codi Roberts. The patient was felt to have biliary colic, with gallstones & elevated LFTs ( hyperbilirubinemia/transaminitis), without any evident cholangitis or pancreatitis at that time. Although there were no dilated ducts on initial imaging studies, rule out choledocholithiasis. 01/31/18: EKG- NSR @ 81, nl axis, IRBBB, NSST. 01/31/18: US-COMPLETE ABDOMEN- Multiple gallstones. Though there is no significant gallbladder wall thickening or pericholecystic fluid, cholecystitis cannot be excluded in the proper clinical setting. If there is persistent clinical suspicion for acute cholecystitis, correlation with a nuclear medicine hepatobiliary scan may be helpful to assess for cystic duct obstruction. Left hepatic cyst 1.0 x 0.9 x 1.1 cm. Normal CBD 5 mm. 01/31/18: CT ABD & PELVIS W IV CONTRAST- Abnormal appearance of the gallbladder with wall thickening and pericholecystic fluid. No radiopaque gallstones are seen, but the appearance does raise suspicion for acute cholecystitis. ? Liver cysts. 02/01/18: MRI ABDOMEN WITHOUT CONTRAST (MRCP)- Cholelithiasis with multiple small gallstones which are present within the gallbladder neck. There is mild gallbladder wall thickening. Acute cholecystitis is not excluded. There is no evidence for choledocholithiasis. Normal IHD/EHD, with CBD 5 mm. Normal PD. Norml pancreas. There is a small cystic lesion in the liver and additional T2 hyperintense lesion which is incompletely characterized. Additional incidental findings as noted above. 02/01/18: Lap CCKY, per Dr. Grande, w/o IOC, as ducts were cleared on preop MRCP, with intraoperative findings of cholelithiasis & cholecystitis. (*Surgical pathology- pending). The patient was discharged to home 02/01/18, tolerating a diet, as her LFTs were starting to decline. The patient returned to the [facility] 02/03/18, arriving 5:07 a.m., complaining of nausea & vomiting (partially digested food & bile, w/o hematemesis), sharp mid-abdominal pain, weakness, & dizziness, POD # 2, post lap CCKY. There was no positional component. She denied any drainage from the surgical site. She denied any fevers, but may have had some chills. She ate a small piece of chicken, fruit & some bread at 5 p.m. on 02/02/18, followed 1 hour later by the above GI sx. She last drank some juliann angelique at 3 AM on 02/03/18, & had been NPO since. She denied any jaundice, light stools, or pruritus, but noted her urine was somewhat dark. She denied any EtOH or illicit drugs. She is an ex-20 pk yr cigarette smoker, D/C 2017. She had been constipated for the past week, but was on narcotic analgesics postoperatively. She denied any constipation or recurrent diarrhea. There was no rectal bleeding or melena. She denied any CP, SOB, sx UTI, or URI. The patient was not on any NSAIDs, sulfa medications, thiazides, or BCP. She denied any family history of GBD, inherited liver disease , pancreatitis, IBD, PUD, additional GI disease, or GI CA. Upon arrival to the ER, BP 142/88, P 97, R 18, T 98.4, O2 sat RA 94%. She was given IV NS, MS, Zofran, & Unasyn 3g IVPB. She was found to have elevated LFTs & newly elevated lipase. Surgery (Dr. Goldsmith, covering for Dr. Grande), was contacted by the ER, who deferred to GI. 02/03/18: WBC 5.4 (82S/16L/2M), H/H 12.7/39.0, MCV 86, RDW 15, PLT 207, PT 12.3, INR 1.13, glucose 106, BUN/Cr 7/0.7, GFR > 60, Na 143, K 3.8, HCO3 28, AG 12, lactate 1.1, *lipase > 10K, Ca 9.6, albumin 4.1, globulin 2.8, TBil 3.2 (without fracs), alk phos 299, AST 413, ALT 646, *TG- 74. 02/03/18: CT ABD & PELVIS W IV CONTRAST- There are postoperative changes consistent with recent cholecystectomy. There is an ovoid mixed density structure in the gallbladder fossa that has the appearance of a absorbable hemostatic sponge (Surgicel). This was confirmed in the Operative Note in discussion with Dr Yuan. No discrete fluid collection to suggest a bile leak or abscess at this time. Hepatobiliary scintigraphy could be considered if there is high clinical concern for a bile leak or biloma. No biliary ductal dilatation seen. There is a small amount of fat stranding adjacent the head of the pancreas. This appears to be centered around the jt hepatis and gallbladder fossa, suggesting it is postoperative rather than from acute pancreatitis. Discussed with Dr. Yuan. DICTATED BY: Gagan Stubbs MD DATE/TIME DICTATED:02/03/18839 *As of 02/03/18, most likely with gallstone pancreatitis with probable choledocholithiasis and/or sludge in CBD, POD #2 post 02/01/18: lap CCKY, despite lack of dilated ducts on imaging studies, including clean CBD on preop 02/01/18: MRCP. The patient was not hypotensive or tachycardic, and was mentating well. She had no signs of cholangitis. She had already been given Unasyn 3g IVPB by the ER. She was NPO. Clinically doubt postop bile leak or biloma. She had 1 Grave sign by Jolly criteria on admission (elevated AST), but no LDH was sent. She had 0 Grave signs by BiSAP criteria on admission, but no CXR was done to rule out pleural effusions, although none were seen at the lung bases on admission 02/03/18: CT AP with IV contrast. There was some fat stranding at the head of the pancreas, but certainly nothing suspicious for necrosis. 02/03/18: *ERCP WITH SPHINCTEROTOMY/STONE EXTRACTION-(per Dr. Codi Roberts)- Impression: * Choledocholithiasis, treated with sphincterotomy and stone extraction. *As of 02/04/18, the patient remained hemodynamically stable & afebrile, with O2 sat RA 97%. Her Unasyn 3g IVPB x 1 was D/C 02/03/18. She was on IV Ringers Lactate @ 100 cc /hr. she had required minimal amounts of Morphine, last dose at 4:11 a.m. today, given purely for a MOLINA, not for abdominal pain. She was getting Zofran, as needed. Her LFTs were improving, post ES. At present, she denied any abdominal pain, nausea, vomiting, CP, SOB, fevers, chills, or jaundice. She was ambulating in her room. She was hungry & had tolerated clears po. Her diet was about to be advanced. She was interested in being D/C later today, if stable. She was examined in the presence of her , Alonso. 02/02/18: *GB resection- chronic cholecystitis & cholelithiasis, negative for Ca. 02/03/18: *elevated LDH 1154, HgbA1C 5.3; TBil 3.2/DBil 2.6 02/04/18: WBC 3.6, H/H 11.2/33.4, MCV 85.9, RDW 15, PLT 137, BUN/Cr 7/0.5, GFR > 60, Na 140, K 3.5, HCO3 28, albumin 3.1, globulin 2.6, *TBil 0.9/DBil 0.8, alk phos 237, AST 155, ALT 411. *SUGGEST: *Advance to low fat, full liquid diet. Gentle IVF (IV Ringer's lactate at 100cc/ hr). Strict I/O's. Watch for hemoconcentration (i.e.- rising BUN or H/H, despite IVF, which would be a poor prognostic sign). Narcotic analgesics as needed. Zofran as needed.*Consider checking CRP, but probably not needed clinically, at this point. DVT prophylaxs with mechanical ALPS. Continue to mobilize patient as tolerated. *If stable, may D/C to home later today. The above was again discussed with the patient & the patient's , Alonso, at the bedside. I also spoke with the patient's RN, who will convey the above to the medical housestaff. The patient was advised to follow up with her usual GI MD, Dr. Codi Roberts, within a few weeks after D/C, to recheck her LFTs, to make sure there are no additional issues, post 02/03/18: ERCP/ES/CBD stone extraction. Problem List: 1. Gallstone pancreatitis 2. Postoperative abdominal pain 3. Nausea and vomiting in adult patient Subjective Subjective: 02/03/18: *ERCP WITH SPHINCTEROTOMY/STONE EXTRACTION-(per Dr. Codi Roberts)- Impression: * Choledocholithiasis, treated with sphincterotomy and stone extraction. *As of 02/04/18, the patient remained hemodynamically stable & afebrile, with O2 sat RA 97%. Her Unasyn 3g IVPB x 1 was D/C 02/03/18. She was on IV Ringers Lactate @ 100 cc /hr. she had required minimal amounts of Morphine, last dose at 4:11 a.m. today, given purely for a MOLINA, not for abdominal pain. She was getting Zofran, as needed. Her LFTs were improving, post ES. At present, she denied any abdominal pain, nausea, vomiting, CP, SOB, fevers, chills, or jaundice. She was ambulating in her room. She was hungry & had tolerated clears po. Her diet was about to be advanced. She was interested in being D/C later today, if stable. She was examined in the presence of her , Alonso. 02/02/18: *GB resection- chronic cholecystitis & cholelithiasis, negative for Ca. 02/03/18: *elevated LDH 1154, HgbA1C 5.3; TBil 3.2/DBil 2.6 02/04/18: WBC 3.6, H/H 11.2/33.4, MCV 85.9, RDW 15, PLT 137, BUN/Cr 7/0.5, GFR > 60, Na 140, K 3.5, HCO3 28, albumin 3.1, globulin 2.6, TBil 0.9/DBil 0.8, alk phos 237, AST 155, ALT 411. Review of Systems: Full 14 point ROS otherwise noncontributory, and as above.\ Constitutional: Denies: fevers, chills, unexplained weight loss. EENTM: Denies: icterus, epistaxis. Cardiovascular: Denies: chest pain, edema, syncope. Respiratory: Denies: cough, short of breath. GI: Reports: see HPI-> abdominal pain, nausea & vomiting- all resolved. Genitourinary: Denies: dysuria, hematuria. Musculoskeletal: Reports: muscle stiffness from MS. Denies: neck pain. Skin: Denies: jaundice, lesions. Neurological/Psychological: Reports: neuropathy from MS, rare MOLINA. Denies: cognitive dysfunction Hematologic/Endocrine: Denies: bruising, bleeding. All Other Systems: Reviewed and Negative. Objective Vital Signs and I&Os Vital Signs Date Time Temp Pulse Resp B/P B/P Pulse O2 O2 Flow FiO2 Mean Ox Delivery Rate 02/04 1324 98.7 57 18 132/78 97 Room Air 02/04 0650 97.7 73 20 126/78 95 02/03 2202 97.9 70 17 124/80 95 Room Air 02/03 1634 97.7 71 18 130/80 93 Room Air Intake & Output 02/04 1600 02/04 0400 02/03 1600 02/03 0400 02/02 1600 02/02 0400 Intake Total 4050 1050 Output Total 1300 Balance 2750 1050 Intake, IV 3210 600 Intake, Oral 840 450 Output, Urine 1300 Patient 190 lb 190 lb Weight Weight Reported by Patient Reported by Patient Measurement Method Physical Exam: Well-developed, well-nourished, non-toxic appearing female, in no apparent distress. Sclera anicteric. Conjunctiva pink. Oropharynx clear. No oral thrush. No aphthous ulcers. Mucus membranes less dry. There is no adenopathy, thyromegaly, or JVD. No peripheral stigmata of inflammatory bowel disease or chronic liver disease on exam. No spiders on the anterior chest wall. Breast & pelvic exams: API. No CVA tenderness. No spine tenderness. Lungs: clear to A&P. No wheezing, rales, or rhonchi. Heart exam: regular rate rhythm, S1 and S2, without any murmur. Abdominal exam: normal bowel sounds, soft belly, currently nontender, without guarding or rebound. No mass. No organomegaly. Mutliple healing port sites, without pus. No fluid shift. No pulsatile mass. No epigastric bruit. Digital rectal exam: deferred at present. Extremities: without C, C, or E. No palpable cords. No rash. No acute arthropathy. No palmar erythema. No Dupuytren's contractures. Distal pulses 2+ bilaterally. DTRs 2+ bilaterally. Alert and oriented x 3. Right handed. Motor 5/5 B/L. Gait not assessed. A detailed exam for peripheral neuropathy was deferred (hx MS). No tremor. No asterixis. Current Medications: Current Medications Sig/Josette Start time Last Medication Dose Route Stop Time Status Admin Baclofen 10 MG TIDPRN PRN 02/03 1230 AC PO Lactated Ringer's 1,000 ML Q10H 02/03 1330 AC 02/04 IV 02/05 2029 1205 Levothyroxine Sodium 0.088 MG SuSa@02/04 0700 AC 02/04 PO 0533 Levothyroxine Sodium 0.175 MG MoTuWeThFr@02/03 1230 AC PO Morphine Sulfate 2 MG Q4P PRN 02/03 1230 AC 02/04 IV 0411 Ondansetron HCl 4 MG Q6P PRN 02/03 1230 AC 02/04 IV 0409 Oxcarbazepine 600 MG TID 02/03 2100 AC 02/04 PO 1403 Trimethobenzamide HCl 200 MG TIDPRN PRN 02/03 1215 AC IM Results Pertinent Lab Results: Laboratory Tests 02/04 02/03 02/03 0615 0831 0541 Chemistry Sodium (137 - 145 mmol/L) 140 Potassium (3.5 - 5.1 mmol/L) 3.5 Chloride (98 - 107 mmol/L) 102 Carbon Dioxide (22 - 30 mmol/L) 28 Anion Gap (5 - 16) 10 BUN (7 - 17 mg/dL) 7 Creatinine (0.5 - 1.0 mg/dL) 0.5 Estimated GFR (>60 ml/min) > 60 BUN/Creatinine Ratio (7 - 25 %) 14.0 Lactic Acid (0.7 - 2.1 mmol/L) Cancelled 1.1 Total Bilirubin (0.2 - 1.3 mg/dL) 0.9 Direct Bilirubin (< 0.4 mg/dL) 0.8 H AST (14 - 36 U/L) 155 H ALT (9 - 52 U/L) 411 H Alkaline Phosphatase (<127 U/L) 237 H Total Protein (6.3 - 8.2 g/dL) 5.7 L Albumin (3.5 - 5.0 g/dL) 3.1 L Hematology CBC w Diff NO MAN DIFF REQ WBC (4.8 - 10.8 /CUMM) 3.6 L RBC (4.20 - 5.40 /CUMM) 3.89 L Hgb (12.0 - 16.0 G/DL) 11.2 L Hct (37 - 47 %) 33.4 L MCV (81.0 - 99.0 FL) 85.9 MCH (27.0 - 31.0 PG) 28.9 MCHC (33.0 - 37.0 G/DL) 33.6 RDW (11.5 - 14.5 %) 15.0 H Plt Count (130 - 400 /CUMM) 137 MPV (7.4 - 10.4 FL) 9.1 Gran % (42.2 - 75.2 %) 68.9 Lymphocytes % (20.5 - 51.1 %) 21.1 Monocytes % (1.7 - 9.3 %) 7.2 Eosinophils % (0 - 5 %) 2.5 Basophils % (0.0 - 2.0 %) 0.3 Absolute Granulocytes (1.4 - 6.5 /CUMM) 2.5 Absolute Lymphocytes (1.2 - 3.4 /CUMM) 0.8 L Absolute Monocytes (0.10 - 0.60 /CUMM) 0.3 Absolute Eosinophils (0.0 - 0.7 /CUMM) 0.1 Absolute Basophils (0.0 - 0.2 /CUMM) 0 02/03 0541 Chemistry Sodium (137 - 145 mmol/L) 143 Potassium (3.5 - 5.1 mmol/L) 3.8 Chloride (98 - 107 mmol/L) 103 Carbon Dioxide (22 - 30 mmol/L) 28 Anion Gap (5 - 16) 12 BUN (7 - 17 mg/dL) 7 Creatinine (0.5 - 1.0 mg/dL) 0.7 Estimated GFR (>60 ml/min) > 60 BUN/Creatinine Ratio (7 - 25 %) 10.0 Glucose (65 - 99 mg/dL) 106 H Hemoglobin A1c (4.2 - 5.8 %) 5.3 Calcium (8.4 - 10.2 mg/dL) 9.6 Total Bilirubin (0.2 - 1.3 mg/dL) 3.2 H Direct Bilirubin (< 0.4 mg/dL) 2.6 H AST (14 - 36 U/L) 413 H ALT (9 - 52 U/L) 646 H Alkaline Phosphatase (<127 U/L) 299 H Lactate Dehydrogenase (313 - 618 U/L) 1154 H Total Protein (6.3 - 8.2 g/dL) 6.9 Albumin (3.5 - 5.0 g/dL) 4.1 Globulin (1.9 - 4.2 gm/dL) 2.8 Albumin/Globulin Ratio (1.1 - 2.2 %) 1.5 Triglycerides (<150 mg/dL) 74 Lipase (23 - 300 U/L) > 98372 H Coagulation PT (9.4 - 12.5 SEC) 12.3 INR (0.90 - 1.19) 1.13 Hematology CBC w Diff MAN DIFF ORDERED WBC (4.8 - 10.8 /CUMM) 5.4 RBC (4.20 - 5.40 /CUMM) 4.54 Hgb (12.0 - 16.0 G/DL) 12.7 Hct (37 - 47 %) 39.0 MCV (81.0 - 99.0 FL) 86.0 MCH (27.0 - 31.0 PG) 28.0 MCHC (33.0 - 37.0 G/DL) 32.6 L RDW (11.5 - 14.5 %) 15.0 H Plt Count (130 - 400 /CUMM) 207 MPV (7.4 - 10.4 FL) 8.6 Gran % (42.2 - 75.2 %) 81.2 H Lymphocytes % (20.5 - 51.1 %) 10.9 L Monocytes % (1.7 - 9.3 %) 6.6 Eosinophils % (0 - 5 %) 1.0 Basophils % (0.0 - 2.0 %) 0.3 Absolute Granulocytes (1.4 - 6.5 /CUMM) 4.4 Segmented Neutrophils (42.2 - 75.2 %) 82 H Absolute Lymphocytes (1.2 - 3.4 /CUMM) 0.6 L Lymphocytes (20.5 - 51.1 %) 16 L Monocytes (1.7 - 9.3 %) 2 Absolute Monocytes (0.10 - 0.60 /CUMM) 0.4 Absolute Eosinophils (0.0 - 0.7 /CUMM) 0.1 Absolute Basophils (0.0 - 0.2 /CUMM) 0 Platelet Estimate (ADEQUATE) ADEQUATE Hypochromic-Microcytic 1+ Poikilocytosis 1+ Ovalocytes 1+ Other Body Source Fld Total RBCs Counted (%) 100 Imaging/Other Studies: 02/03/18: CT ABD & PELVIS W IV CONTRAST- There are postoperative changes consistent with recent cholecystectomy. There is an ovoid mixed density structure in the gallbladder fossa that has the appearance of a absorbable hemostatic sponge (Surgicel). This was confirmed in the Operative Note in discussion with Dr Yuan. No discrete fluid collection to suggest a bile leak or abscess at this time. Hepatobiliary scintigraphy could be considered if there is high clinical concern for a bile leak or biloma. No biliary ductal dilatation seen. There is a small amount of fat stranding adjacent the head of the pancreas. This appears to be centered around the jt hepatis and gallbladder fossa, suggesting it is postoperative rather than from acute pancreatitis. Discussed with Dr. Yuan. DICTATED BY: Gagan Stubbs MD 02/03/18: *ERCP WITH SPHINCTEROTOMY/STONE EXTRACTION-(per Dr. Codi Roberts)- Impression: * Choledocholithiasis, treated with sphincterotomy and stone extraction.
[2018-02-04] MEDS ORDERED: ZOFRAN4 M2 PO (15:34)
--- NOTE | 2018-02-04 15:34 | Patient Discharge Instructions ---
Discharge Instructions General Discharge Information You were seen/treated for: ABDOMINAL PAIN, S/P ERCP STONE REMOVAL Special Instructions: Please follow up with your pcp in 1 week.. Please follow up with Dr. Roberts (GI) in 2 week. Please check Liver function tests before you see him, we have give you a script. Please continue a low fat full liquid diet. Activity Full Activity/No Limits: Yes ( TOLERATED) Acute Coronary Syndrome Inclusion Criteria At DC or during hospital stay patient has or had the following: ACS DIAGNOSIS No Discharge Core Measures Meds if any: Prescribed or Continued at Discharge Meds if any: NOT Prescribed or Continued at Discharge Congestive Heart Failure Inclusion Criteria At DC or during hospital stay patient has or had the following: CHF DIAGNOSIS No Discharge Core Measures Meds if any: Prescribed or Continued at Discharge Meds if any: NOT Prescribed or Continued at Discharge Cerebrovascular accident Inclusion Criteria At DC or during hospital stay patient has or had the following: CVA/TIA Diagnosis No Discharge Core Measures Meds if any: Prescribed or Continued at Discharge Meds if any: NOT Prescribed or Continued at Discharge Venous thromboembolism Inclusion Criteria VTE Diagnosis No VTE Type NONE VTE Confirmed by (Test) NONE Discharge Core Measures - Per Current guidelines, there needs to be overlap - treatment for the first 5 days of Warfarin therapy. - If discharged on Warfarin prior to 5 days of - overlap therapy, the patient will need to be - assessed for post discharge needs including - *Post discharge parental anticoagulation - *Warfarin and/or parental anticoagulation education - *Follow up date to check INR post discharge At least 5 days overlap therapy as Inpatient No Meds if any: Prescribed or Continued at Discharge Note: Overlap Therapy is Warfarin and Anticoagulant Meds if any: NOT Prescribed or Continued at Discharge
--- NOTE | 2018-02-05 09:52 | Discharge Summary ---
Visit Information Visit Dates Admission Date: 02/03/18 Discharge Date: 02/04/18 Hospital Course Course Attending Physician: Felipe Oh MD Primary Care Physician: Meera LYNNE,Bunny Blum Consulting Request: Consulting Specialty: Gastroenterology Hospital Course: 52-year-old female with a past medical history of MS, BEATRICE, hypothyroidism who was post operative day #2 of laparoscopic cholecystectomy (performed on January by Dr. Hsieh) presented to the ED with c/o of abdominal pain, nausea, and occassional chills that started the evening [employer]. Vitals at the time of admission blood pressure 130/78, pulse 65, afebrile, respiratory rate of 18 saturating 95% on room air. Labs pertinent for normal white blood cell count 5400, H&H of 12.7/39.0, platelet count of 207,000. Serum chemistries pertinent for sodium of 143, potassium 3.8, bicarb of 28, BUN 7 with a creatinine of 0.77 glucose 106. LFTs pertinent for trending up since discharge on February 01, 2018 with a total bili of 3.2, AST/ALT 413/646, alk phos of 299 and serum lipase more than 10,000. CAT scan of the abdomen pelvis showed postoperative changes consistent with recent cholecystectomy, and opioid mixed density structure in the gallbladder fossa that has an appearance of an absorbable hemostatic sponge, no discrete fluid collection to suggest a bile leak or abscess at this time. No biliary ductal dilatation, small amount of fat stranding adjacent to the head of the pancreas which appears to be centered around the jt hepatis and gallbladder fossa suggesting. Rated rather than acute pancreatitis. In the ER patient received Unasyn 3000 mg IV 1, morphine sulfate 4 mg IV 2, Zofran 4 mg IV 2 and a bolus of normal saline. Patient was admitted to general medicine and the following problems were addressed: #Choledocholithiasis s/p lap alexsandra day #2 Patient was evaluated by GI and underwent ERCP on the day of admission with sphincterotomy and stone extraction. Her diet post procedure was advanced to low fat which she tolerated well. Patient was discharged home the following day with F/U blood work in a day to ensure her LFTs are trending down. She should F/U [facility] GI as an outpatient. #Hypothyroidism Patient was continued on 175mcg of Levothyroxine Tue through [facility] and 1/2 tab on Sat and Sun #MS Patient was continued on her home medication of oxycarbazepine 600MG TID, and Baclofen #DVT prophylaxis She was on ALPs given ERCP and sphincterotomy - Diet - Patient was satrted on low fat diet post-procedure which she tolerated well. Allergies: Coded Allergies: No Known Allergies (02/03/18) Significant Procedures: SERVICE DATE: 02/03/18 EXAM TYPE: CAT - CT ABD & PELVIS W IV CONTRAST FINDINGS: LUNG BASES: Bibasilar atelectasis, increased, right greater than left. LIVER, GALLBLADDER, AND BILIARY TREE: There is a hyperenhancing lesion in segment 7 of the liver, which is T2 bright on the MRI, consistent with a hemangioma. This is simple cyst along the anterior margin of the left lobe of the liver. New cholecystectomy clips are seen in the gallbladder fossa. There is an ovoid mixed density structure in the gallbladder fossa that measures approximately 3.6 x 2.3 cm, this has soft tissue density centrally, with a rim of fat and gas, and a thin peripheral capsule. A hemostatic sponge or sponge or Surgicel could have this appearance. There is a small amount of fluid along the right paracolic gutter, presumably postoperative as well. No focal fluid collection seen. No biliary ductal dilatation. PANCREAS: There is subtle fat stranding adjacent the head of the pancreas, although this appears to be centered in the gallbladder fossa. No peripancreatic fluid or fat stranding elsewhere. SPLEEN: Unremarkable. ADRENAL GLANDS: Unremarkable. KIDNEYS AND URETERS: The kidneys are normal in size, shape, and attenuation. No hydronephrosis, hydroureter, or calculi seen. No perinephric stranding. BLADDER: Unremarkable. GASTROINTESTINAL TRACT: There may be a small hiatal hernia. The stomach is collapsed. The small bowel is nondilated. There is colonic diverticulosis but there is no evidence of colitis or diverticulitis. The appendix is not seen. ABDOMINAL WALL: No significant hernia is appreciated. LYMPH NODES: No pathologically enlarged lymphadenopathy. VASCULAR: Unremarkable. PELVIC VISCERA: Small amount of pelvic free fluid is present. Normal CT appearance of the uterus and ovaries. OSSEOUS STRUCTURES: Unremarkable. IMPRESSION: There are postoperative changes consistent with recent cholecystectomy. There is an ovoid mixed density structure in the gallbladder fossa that has the appearance of a absorbable hemostatic sponge (Surgicel). This was confirmed in the Operative Note in discussion with Dr Yuan. No discrete fluid collection to suggest a bile leak or abscess at this time. Hepatobiliary scintigraphy could be considered if there is high clinical concern for a bile leak or biloma. No biliary ductal dilatation seen. There is a small amount of fat stranding adjacent the head of the pancreas. This appears to be centered around the jt hepatis and gallbladder fossa, suggesting it is postoperative rather than from acute pancreatitis. Discussed with Dr. Yuan. SERVICE DATE: 02/03/18- EXAM TYPE: RAD - XRY-ERCP BILIARY & PANCREATIC FINDINGS: Evidence of cannulation of both the common bile duct as well as pancreatic ducts are noted. Full procedural detail and findings will be described by Dr. Roberts, the performing physician. FLUOROSCOPY TIME: 1 minute 56 seconds. NUMBER OF IMAGES: 12 images. IMPRESSION: C-arm fluoroscopy assistance is provided at the time of ERCP. Please refer to Dr. Roberts's note for further full details. ERCP Procedure Procedure Date: 02/03/18 GI Procedure(s): ERCP with sphincterotomy/stone gardening instructor: Herrera Roberts M.D. ASA Classification: III Indications: Abdominal pain, vomiting, hyperbilirubinemia and pancreatitis status post cholecystectomy. Presentation highly suggestive of choledocholithiasis. Instrument: duodenoscope Meds Received: ELIZA/TIVA Patient's Tolerance: good Complications: none Procedure: The patient signed informed consent, and was intubated. She was turned into the prone position, and was further medicated. Pulse oximetry, blood pressure and cardiac monitoring were performed continuously throughout the procedure. The Olympus V duodenoscope was inserted into the mouth and advanced to the duodenum. Indomethacin 100 mg was administered per rectum. The stomach was not examined. The gastric outlet, duodenum and papilla were normal. The pancreatic duct was cannulated and partially opacified. Caliber and contour were normal. There were no evident filling defects or strictures. The bile duct was accessed with guidewire, cannulated, and opacified. The cholangiogram demonstrated normal caliber and contour of the common bile duct, common hepatic duct, and hepatic ducts. There was a single distal filling defect. There was no extravasation of contrast/leak. The cystic duct was not opacified. A large, bloodless sphincterotomy was performed. The stone was visualized in the area of the ampulla/distal CBD, and removed with suction. An occlusion cholangiogram was performed with an inflated 15 mm extraction balloon. There was no distal extravasation of contrast. There were no further filling defects. The duct was swept from bifurcation to duodenum, without delivery of stones or debris, and without resistance to passage. The patient was extubated in the procedure room, and brought to the recovery room in good condition. Impression: * Choledocholithiasis, treated with sphincterotomy and stone extraction. Disposition Summary Disposition Principal Diagnosis: Choledocholithiasis, treated with sphincterotomy and stone extraction Additional Diagnosis: MS BEATRICE Hypothyroidism Discharge Disposition: home or self care Discharge Instructions General Discharge Information Code Status: Full Code Patient's Diet: Low fat diet Patient's Activity: As tolerated Follow-Up Instructions/Appts: Please follow up with your pcp in 1 week. Please follow up with Dr. Roberts (GI) in 2 week. Please check Liver function tests before you see him, we have give you a script. Please continue a low fat full liquid diet. Medications at Discharge Discharge Medications: Stop taking the following medications: Morphine Sulfate (Morphine Sulfate) 15 MG TABLET ORAL EVERY SIX HOURS NEEDED as needed for severe pain Qty = 15 Continue taking these medications: Levothyroxine Sodium (Levothyroxine Sodium) 175 MCG TABLET ORAL DAILY Qty = 34 Instructions: TAKE 1 PILL TUESDAY-TUESDAY 1/2 PILL TUESDAY- TUESDAY Comments: DID NOT ADMINISTER IN THE HOSPITAL Baclofen (Baclofen) 10 MG TABLET 1 Tablet ORAL THREE TIMES DAILY as needed for MS Qty = 60 Comments: DID NOT ADMINISTER IN HOSPITAL Cholecalciferol (Vitamin D3) 1,000 UNIT TABLET 5,000 Units ORAL DAILY Comments: DID NOT ADMINISTER IN THE HOSPITAL B12/Levomefolate Calcium/B-6 (Folbic Rf Tablet) 2 MG-1.13 MG-25 MG TABLET 2,500 Milligram ORAL DAILY Comments: DID NOT ADMINISTER IN HOSPITAL Magnesium Oxide (Magnesium) 500 MG CAPSULE 1 Capsule ORAL DAILY Comments: DID NOT ADMINISTER IN THE HOSPITAL Saccharomyces Boulardii (Probiotic) 250 MG CAPSULE 1 Tablet ORAL DAILY Comments: DID NOT ADMINISTER IN THE HOSPITAL Levothyroxine Sodium (Levothyroxine Sodium) 88 MCG TABLET 1 Tablet ORAL SAT/SUN Qty = 90 Comments: Last Taken:02/04/18 Time:0530 Oxcarbazepine (Trileptal) 300 MG TABLET 2 Tablet ORAL THREE TIMES DAILY Qty = 90 Comments: Last Taken:02/04/18 Time:2:00 PM Lactobacillus Acidophilus (Probiotic) 10 BILLION CELL CAPSULE 1 Capsule ORAL THREE TIMES DAILY Qty = 90 Comments: NOT GIVEN IN HOSPITAL Copies To: Meera LYNNE,Bunny Blum; Alejandra LYNNE,Herrera Olivo Attending MD Review Statement Documenting Attending: Felipe Oh MD Other Findings: The patient was seen on the day of discharge and agree with the plan of care. Will follow-up LFT's next week and follow up with PCP/GI.
== END 2018-02-04 18:12 | DRG 446 ==
LOC: ERH 05:07 → ERHI 11:35 → ENRESERV 12:52 → ENTRNSPT 13:20 → EDTRNSPT 13:26 → EDTRNSPTSTS 13:27 → CMPTRNSPT 13:36 → 2NB 13:39 → ENPENDDIS 02-04 15:59 → ENTRNSPT 02-04 17:49 → EDTRNSPTSTS 02-04 18:04 → EDTRNSPT 02-04 18:04 → 2NB 02-04 18:12 → CMPTRNSPT 02-04 18:21
PROVIDERS: Emergency Medicine; Internal Medicine Infectious Disease
PROC: 0FC98ZZ Extirpation of Matter from Common Bile Duct, Via Natural or Artificial Opening Endoscopic (ICD-10-PCS; principal; 2018-02-03)
DX: K80.50 Calculus of bile duct without cholangitis or cholecystitis without obstruction (principal); G35 Multiple sclerosis; G62.9 Polyneuropathy, unspecified; G47.33 Obstructive sleep apnea (adult) (pediatric); E03.9 Hypothyroidism, unspecified; Z87.891 Personal history of nicotine dependence; Z90.49 Acquired absence of other specified parts of digestive tract
CPT/HCPCS: 2NBP; 36592; 74177; 82436; 96374; 96375; 99291; J1644; J2405; J3250; J7120; Q9967